=== PATIENT | female | born 1940 | race Caucasian/White ===

== ENCOUNTER 2017-08-01 06:56 | Day surgery (SDC) | payer OTHER ==
[2017-08-01] MEDS ORDERED: CEFAZOLIN 1 GM/50 ML (PMX) 50 ML IVPB (09:00)
[2017-08-01] MEDS ORDERED: SOD CHLORIDE 0.9% 1,000 ML IV (09:00)
[2017-08-01] MEDS ORDERED: PROPOFOL 20 ML (10:24)
[2017-08-01] MEDS ORDERED: CEFAZOLIN 1 GM INJ (10:24)
[2017-08-01] MEDS ORDERED: NEOSTIGMINE 3 MG/3 ML SYRINGE (10:24)
[2017-08-01] MEDS ORDERED: ROCURONIUM 50 MG INJ (10:24)
[2017-08-01] MEDS ORDERED: GLYCOPYRROLATE 0.4 MG INJ (10:24)
[2017-08-01] MEDS ORDERED: ONDANSETRON 4 MG INJ (10:25)
[2017-08-01] MEDS ORDERED: FENTAnyl 50 MCG/ML VIAL ×2 (10:25→11:11)
[2017-08-01] MEDS ORDERED: DEXAMETHASONE 4 MG/ML 1 ML INJ (10:25)
[2017-08-01] MEDS ORDERED: MIDAZOLAM 1 MG/ML 2 ML INJ (10:25)
[2017-08-01] MEDS: BUPIVACAINE 0.25% (MPF) 30 ML INJ (11:06)
[2017-08-01] MEDS ORDERED: PIPER-TAZO 3.375 GM IV (PMX) 100 ML (11:17)
[2017-08-01] MEDS ORDERED: SUGAMMADEX SODIUM 200 MG/2 ML VIAL IV (11:24)
[2017-08-01] MEDS ORDERED: FENTAnyl 50 MCG/ML VIAL IV ×3 (11:30)
[2017-08-01] MEDS ORDERED: MIDAZOLAM 1 MG/ML 2 ML INJ IV (11:30)
[2017-08-01] MEDS ORDERED: DIPHENHYDRAMINE 50 MG INJ IV (11:30)
[2017-08-01] MEDS ORDERED: LABETALOL HCL 20MG INJ IV (11:30)
[2017-08-01] MEDS ORDERED: EPHEDrine SULFATE 50 MG/5 ML SYG IV (11:30)
[2017-08-01] MEDS ORDERED: ALBUTEROL 0.083% (NEB) 2.5 MG/3 ML AMP HHN (11:30)
[2017-08-01] MEDS ORDERED: MEPERIDINE 25 MG INJ IV (11:30)
[2017-08-01] MEDS ORDERED: IPRATROPIUM (NEB) 0.5 MG/2.5 ML AMP HHN (11:30)
[2017-08-01] MEDS ORDERED: hydrALAzine 20 MG INJ IV (11:30)
[2017-08-01] MEDS ORDERED: HYDROmorphONE (0.2 MG/ML) 10ML SYG IV ×3 (11:30)
[2017-08-01] MEDS ORDERED: TRIMETHOBENZAMIDE 100 MG/ML VIAL IM (11:30)
[2017-08-01] MEDS ORDERED: OXYCODONE/ACETAMINOPHEN (5/325) TAB PO ×2 (11:30)
[2017-08-01] MEDS ORDERED: ONDANSETRON 4 MG INJ IV (11:30)
[2017-08-01] MEDS: HYDROCODONE/APAP (5/325) TAB PO (13:07)
== END 2017-08-01 13:46 | disposition home or self-care (01) ==
LOC: SDS 06:56
DX: K80.10 Calculus of gallbladder with chronic cholecystitis without obstruction (principal); I10 Essential (primary) hypertension; E11.9 Type 2 diabetes mellitus without complications
CPT/HCPCS: 47562; 82962; 88304